=== PATIENT | male | born 1970 | race Caucasian/White ===

== ENCOUNTER 2024-07-17 16:58 | Inpatient (IN) ==
[2024-07-17 17:38] LABS: iSTAT Creatinine 1.1 mg/dl (0.6-1.3); iSTAT Hemoglobin 13.6 g/dl (14.0-18.0); iSTAT Ionized Calcium 1.18 mmol/l (1.12-1.32); iSTAT Potassium 3.6 mmol/L (3.3-5.0)
[2024-07-17 17:41] LABS: Basophils # (auto) 0.03 K/uL (0.00-0.20); Basophils % (auto) 0.4 %; Eosinophils % (auto) 5.7 %; Hematocrit (blood only) 38.4 % (42.0-52.0); Immature Granulocytes # (auto) 0.03 K/uL (0.01-0.20); Immature Granulocytes % (auto) 0.4 %; Lymphocytes # (auto) 1.37 K/uL (1.20-3.40); Lymphocytes % (auto) 19.7 %; Mean Corpuscular Hemoglobin 28.6 pg (25.0-34.0); Mean Corpuscular Hgb Conc 33.9 g/dL (32.0-36.0); Mean Corpuscular Volume 84.4 fL (80.0-100.0); Mean Platelet Volume 9.9 fL (9.4-12.4); Monocytes # (auto) 0.35 K/uL (0.11-0.59); Neutrophils # (auto) 4.78 K/uL (1.40-6.50); Neutrophils % (auto) 68.8 %; Platelet Count 189 K/uL (130-400); RDW Coefficient of Variation 12.7 % (11.5-14.5); RDW Standard Deviation 38.4 fL (36.4-46.3); Red Blood Count 4.55 M/uL (4.70-6.10); White Blood Count 6.96 K/ul (4.8-10.8)
[2024-07-17 17:57] LABS: BUN Creatinine Ratio 13.8 (10-20); Creatinine Clr Calc Pharmacy 85.7 ml/min; Potassium 3.6 mmol/L (3.5-5.1)
[2024-07-17 18:03] LABS: Troponin I High Sensitivity 10.7 pg/ml (0-20)
[2024-07-17 18:11] LABS: Partial Thromboplastin Ratio 0.9; Partial Thromboplastin Time 23 Seconds (21-31); Prothrombin Time 10.8 Seconds (9.0-12.0)
[2024-07-17] MEDS: OPTIRAY 320 125ml IV ONE (19:00)
--- NOTE | 2024-07-17 19:58 | CT Scan Report ---
Exam(s): CTA CHEST IV Amt: 117 ml optiray 320 EXAM: CT Angiography Chest With Intravenous Contrast CLINICAL HISTORY: Reason for exam: Chest Pain, eval for PE. TECHNIQUE: Axial computed tomographic angiography images of the chest with intravenous contrast. CTDI is 26 mGy and DLP is 864 mGy-cm. Automated exposure control was utilized for the study. A dose lowering technique was utilized adhering to the principles of ALARA. MIP reconstructed images were created and reviewed. COMPARISON: No relevant prior studies available. FINDINGS: Pulmonary arteries: Adequate pulmonary artery opacification. Enlarged main pulmonary may represent pulmonary arterial hypertension. Acute lobar, segmental, and subsegmental pulmonary emboli involving all lung lobes bilaterally. Aorta: No acute findings. No aortic aneurysm or dissection. Lungs: Focal regions of subpleural opacity posterior left upper lobe and at the basilar left lower lobe, potentially pulmonary infarcts. Bibasilar subsegmental atelectasis. No visible mass. Pleural space: Unremarkable. No significant effusion. No pneumothorax. Heart: Elevated RV/LV ratio measuring 1.4 suggesting RV strain. Mild cardiomegaly. Coronary artery atherosclerosis. Trace pericardial effusion. Bones/joints: No acute fracture. No dislocation. Soft tissues: Unremarkable. Lymph nodes: Mildly enlarged left infrahilar lymph nodes. IMPRESSION: 1. Acute lobar, segmental, and subsegmental pulmonary emboli involving all lung lobes bilaterally. 2. Elevated RV/LV ratio measuring 1.4 suggesting RV strain. 3. Focal regions of subpleural opacity posterior left upper lobe and at the basilar left lower lobe, potentially pulmonary infarcts. Communications: Call Doctor Pulmonary Embolism Electronically signed by: Delgado Flores M.D. 07/17/24 19:57 PM
[2024-07-17] MEDS ORDERED: Heparin IV Adult Wt-Based Standard w/ INITIAL Bolus Protocol IV STA (20:03)
[2024-07-17] MEDS ORDERED: HEPARIN SOD (PORCINE) 1000 UNIT/ML IV ONE (20:18)
[2024-07-17] MEDS: HEPARIN SODIUM/DEXTROSE 25,000 UNITS/500 ML BAG IV SCH (20:52)
[2024-07-17] MEDS: HEPARIN SOD (PORCINE) 1000 UNIT/ML IV ONE (20:53)
--- NOTE | 2024-07-17 21:23 | Emergency Department Note ---
History of Present Illness General Chief Complaint: Abnormal Labs/Diagnostic Testing Stated Complaint: ABN TEST RESULTS Time Seen by Provider: 07/17/24 17:18 History of Present Illness Provider Complaint: + abnormal lab Returns today for: + called because of abnormal lab/test Description of abnormal result: Ultrasound showing DVT Associated symptoms: + shortness of breath; no fever, no chills, no chest pain, no rash, no nausea or no abdominal pain Home Medications Medication Instructions Recorded Confirmed Type No Known Home Medications 07/17/24 07/17/24 History Allergies Allergy/AdvReac Type Severity Reaction Status Date / Time No Known Allergies Allergy Unverified 07/17/24 20:14 Past Med/Surg History Problem List (Updated 07/17/24 @ 21:25 by Dakota Mullins MD) DVT (deep venous thrombosis) (Acute) Pulmonary emboli (Acute) Right leg swelling Social History Smoking Status: Never smoker Feels Safe at Home: Yes Physical Exam 2 Vital Signs: Vital Signs - 24 hr 07/17/24 17:07 07/17/24 17:46 07/17/24 17:46 Temperature 36.8 C Temperature Source Temporal Artery Sc an Pulse Rate 108 H 87 Pulse Rate [Apical ] 90 Pulse Rhythm Regular Respiratory Rate 22 20 20 Respiratory Effort / Characteristics Non-Labored Sponta neous Non-Labored Sponta neous Respiratory Depth Normal Normal Respiratory Patter n Blood Pressure 124/81 Blood Pressure [Ri ght Arm] 147/87 H Blood Pressure Zuleyma n 95 Blood Pressure Zuleyma n [Right Arm] 107 Pulse Oximetry 97 96 95 Oxygen Delivery Me thod Room Air Room Air Room Air Sepsis Recent Feve r Within 48 Hours No Sepsis New/Unexpla ined Change in Men memo Status No Sepsis Action Take n by Nursing No Action Required 07/17/24 18:01 07/17/24 20:31 Temperature Temperature Source Pulse Rate 89 Pulse Rate [Apical ] 88 Pulse Rhythm Respiratory Rate 18 Respiratory Effort / Characteristics Non-Labored Respiratory Depth Normal Respiratory Patter n Regular Blood Pressure Blood Pressure [Ri ght Arm] 157/92 H Blood Pressure Zuleyma n Blood Pressure Zuleyma n [Right Arm] 113 Pulse Oximetry 95 Oxygen Delivery Me thod Room Air Sepsis Recent Feve r Within 48 Hours Sepsis New/Unexpla ined Change in Men memo Status Sepsis Action Take n by Nursing Physical Exam: Physical Exam GENERAL: oriented to person, place, and time. appears well-developed and well- nourished. HENT: Exam performed. - Head: Normocephalic and atraumatic. EYES: Conjunctivae and EOM are normal. Right eye exhibits no discharge. Left eye exhibits no discharge. No scleral icterus. NECK: Normal range of motion. Neck supple. No JVD present. CV: Normal rate, regular rhythm, normal heart sounds and intact distal pulses. Palpable radial pulses bue. PULM/CHEST: Effort normal and breath sounds normal. No respiratory distress. No stridor. no wheezes. no rales. ABD: The abdomen is soft. There is no tenderness. NEURO: Motor and sensation grossly intact. SKIN: Skin is warm and dry. He is not diaphoretic. PSYCH: normal mood and affect. Behavior is normal. Judgment and thought content normal. Course Course 1717: The patient was evaluated in room A12. A complete history and physical exam was performed Administered Medications Heparin Sodium/Dextrose (Heparin Sodium/Dextrose) 25,000 units in 500 mls @ 29 mls/hr IV .[id number] PENDING SALE TO [facility]; Protocol Stop: 08/16/24 20:29 Last Admin: 07/17/24 20:52 Dose: 1,450 units/hr, 29 mls/hr Documented By: SAHARA Co-signed By: ALEE Discontinued Medications Heparin Sodium (Porcine) (Heparin Sod (Porcine) 1000 Unit/Ml) 6,000 units IV NOW ONE Stop: 07/17/24 20:46 Last Admin: 07/17/24 20:53 Dose: 6,000 units Documented By: SAHARA Co-signed By: ALEE Ioversol (Optiray 320 125ml) 117 ml IV ONCE ONE Stop: 07/17/24 19:01 Last Admin: 07/17/24 19:00 Dose: 117 ml Documented By: CORY Medical Decision Making Medical Records Attestation: I reviewed the patient's medical records. External medical records reviewed. Patient had an extensive DVT in the right lower extremity from the right popliteal gastrocnemius posterior tibial anterior tibial and peroneal veins also on the right femoral vein. This ultrasound was done outpatient today. Laboratory Data Attestation: I reviewed the patient's lab results. 07/17/24 17:19 07/17/24 17:19 Lab Results 07/17/24 07/17/24 Range/Units 17:19 17:26 WBC 6.96 (4.8-10.8) K/ul RBC 4.55 L (4.70-6.10) M/uL Hgb 13.0 L (14.0-18.0) g/dl POC Hgb 13.6 L (14.0-18.0) g/dl Hct 38.4 L (42.0-52.0) % POC Hct 40 L (42-52) % MCV 84.4 (80.0-100.0) fL MCH 28.6 (25.0-34.0) pg MCHC 33.9 (32.0-36.0) g/dL RDW Std Deviation 38.4 (36.4-46.3) fL RDW Coeff of Kamaljit 12.7 (11.5-14.5) % Plt Count 189 (130-400) K/uL MPV 9.9 (9.4-12.4) fL Immature Gran % (Auto) 0.4 % Neut % (Auto) 68.8 % Lymph % (Auto) 19.7 % [place] % (Auto) 5.0 % Eos % (Auto) 5.7 % Baso % (Auto) 0.4 % Neut # (Auto) 4.78 (1.40-6.50) K/uL Lymph # (Auto) 1.37 (1.20-3.40) K/uL [place] # (Auto) 0.35 (0.11-0.59) K/uL Eos # (Auto) 0.40 (0.00-0.50) K/uL Baso # (Auto) 0.03 (0.00-0.20) K/uL Immature Gran # (Auto) 0.03 (0.01-0.20) K/uL PT 10.8 (9.0-12.0) Seconds INR 1.0 (0.9-1.1) APTT 23 (21-31) Seconds PTT Ratio 0.9 POC Sodium 143 (135-144) mmol/L Sodium 141 (136-145) mmol/L POC Potassium 3.6 (3.3-5.0) mmol/L Potassium 3.6 (3.5-5.1) mmol/L POC Chloride 107 (101-112) mmol/L Chloride 107 (98-107) mmol/L Carbon Dioxide 25 (21-32) mmol/L POC Total CO2 24 (24-31) mmol/L Anion Gap 9 (3-11) POC Anion Gap 15.0 L (16-25) mmol/L POC BUN 17 (7-18) mg/dl BUN 15 (6-23) mg/dl Creatinine 1.09 (0.6-1.4) mg/dl POC Creatinine 1.1 (0.6-1.3) mg/dl Est Cr Clr Drug Dosing 85.7 ml/min eGFR 79.65 BUN/Creatinine Ratio 13.8 (10-20) Glucose 98 (70-99(Fasting)) mg/dl POC Glucose (other) 98 (70-99) mg/dl Calcium 9.0 (8.6-10.3) mg/dl POC Ioniz Calcium Nathan 1.18 (1.12-1.32) mmol/l Troponin I High Sens 10.7 (0-20) pg/ml Lipase 12 (11-82) U/L Imaging Data Attestation: I personally reviewed and interpreted this imaging study as follows: Radiologist's Impression: Chest CTA 07/17/24 17:19 CR Exam(s): CTA CHEST IV Amt: 117 ml optiray 320 EXAM: CT Angiography Chest With Intravenous Contrast CLINICAL HISTORY: Reason for exam: Chest Pain, eval for PE. TECHNIQUE: Axial computed tomographic angiography images of the chest with intravenous contrast. CTDI is 26 mGy and DLP is 864 mGy-cm. Automated exposure control was utilized for the study. A dose lowering technique was utilized adhering to the principles of ALARA. MIP reconstructed images were created and reviewed. COMPARISON: No relevant prior studies available. FINDINGS: Pulmonary arteries: Adequate pulmonary artery opacification. Enlarged main pulmonary may represent pulmonary arterial hypertension. Acute lobar, segmental, and subsegmental pulmonary emboli involving all lung lobes bilaterally. Aorta: No acute findings. No aortic aneurysm or dissection. Lungs: Focal regions of subpleural opacity posterior left upper lobe and at the basilar left lower lobe, potentially pulmonary infarcts. Bibasilar subsegmental atelectasis. No visible mass. Pleural space: Unremarkable. No significant effusion. No pneumothorax. Heart: Elevated RV/LV ratio measuring 1.4 suggesting RV strain. Mild cardiomegaly. Coronary artery atherosclerosis. Trace pericardial effusion. Bones/joints: No acute fracture. No dislocation. Soft tissues: Unremarkable. Lymph nodes: Mildly enlarged left infrahilar lymph nodes. IMPRESSION: 1. Acute lobar, segmental, and subsegmental pulmonary emboli involving all lung lobes bilaterally. 2. Elevated RV/LV ratio measuring 1.4 suggesting RV strain. 3. Focal regions of subpleural opacity posterior left upper lobe and at the basilar left lower lobe, potentially pulmonary infarcts. Communications: Call Doctor Pulmonary Embolism Electronically signed by: Delgado Flores M.D. 07/17/24 19:57 PM ECG Data Attestation: I personally reviewed and interpreted this ECG as follows: Rate (beats per minute): 91 Rhythm: normal sinus Findings: no ST depression, no ST elevation or no prolonged QT MDM Narrative Cardiac monitoring: An order was placed for continuous cardiac monitoring. The monitor shows a rate of 90 with sinus rhythm interpreted by me Vital signs stable. Labs are unremarkable. Imaging shows diffuse pulmonary emboli with right ventricular strain. Discussed case with ICU team Isiah PADILLA both he and I feel that the patient does not need ICU level care or thrombolytics at this time given blood pressure, and oxygen saturation, and troponin are all within normal limits. Patient not reporting any chest pain. Discussed case with [facility] hospitalist Dr. Barrios who will evaluate the patient for admission. Heparin bolus and drip started for the patient. Impression & Plan Pulmonary emboli, DVT (deep venous thrombosis) Critical Care Time Critical Care Time: Yes Total Critical Care Time: 65 I have personally spent greater than 65 minutes of critical care time in the direct management of this patient. This includes bedside care, interpretation of diagnostic studies, and testing, discussion with consultants, patient, and family members, and other required patient management activities. This 65 minutes is in excess of all separately billable procedures. Discharge Plan Visit Data Chief Complaint: Abnormal Labs/Diagnostic Testing Stated Complaint: ABN TEST RESULTS ED Provider: Dakota Mullins Discharge Problem: Pulmonary emboli, DVT (deep venous thrombosis) Patient Disposition: Admitted As Inpatient Forms Stand Alone Forms: My [facility] [email or web address] Prescriptions Prescriptions: No Action No Known Home Medications Referrals Referrals: PCP,NO [Primary Care Provider] - Discharge Problem: Pulmonary emboli Qualifiers: Pulmonary embolism type: unspecified Chronicity: acute Acute cor pulmonale presence: with acute cor pulmonale Qualified Code(s): I26.09 - Other pulmonary embolism with acute cor pulmonale DVT (deep venous thrombosis) Qualifiers: DVT location: lower extremity Affected thrombotic vein of extremity: u nspecified vein of extremity Chronicity: acute Laterality: unspecified laterality Qualified Code(s): I82.409 - Acute embolism and thrombosis of unspecified deep veins of unspecified lower extremity
[2024-07-17] MEDS ORDERED: oxyCODONE HCL IR 5 MG TAB (IMMEDIATE RELEASE) PO PRN (21:49)
[2024-07-17] MEDS ORDERED: POLYETHYLENE (MIRALAX) 17 GM PACK PO PRN (21:49)
[2024-07-17] MEDS ORDERED: ACETAMINOPHEN 325 MG TAB PO PRN (21:49)
[2024-07-17] MEDS ORDERED: NITROGLYCERIN SL 0.4 MG/TAB TAB SL PRN (21:49)
[2024-07-17] MEDS: SODIUM CHLORIDE 0.9% 1,000 ML IV SCH (22:14)
[2024-07-18] MEDS: QUEtiapine FUMARATE 25 MG TABLET PO STA ×2 (02:07→04:03)
--- NOTE | 2024-07-18 03:37 | History & Physical Report ---
Date of Service July 17, 2024 Assessment & Plan (1) Pulmonary emboli: Plan: 54-year-old male with no significant past medical history comes because of swelling and pain in the right lower extremity and shortness of breath and found to have right lower extremity DVT and extensive PE. Patient states last couple of weeks he is having pain in the right lower extremity and swelling. Pain was on and off. In last 2 to 3 weeks patient is also getting short of breath on exertion and having cough and bringing up sputum sometimes. A week ago he went to urgent care and thought he might have a Valdovinos's cyst and also because of his sleeping difficulty was prescribed Seroquel. As symptoms not getting better he came to ER today. Ultrasound showed right lower extremity DVT and CT scan showed extensive bilateral PEs. Currently resting comfortably and hemodyna mically stable. Denies any chest pains. No headache. No dizziness. No runny nose or sore throat or cough. No fevers. No nausea. No abdominal pain. Normal bowel and bladder movements. Denies any blood in the stools. Right lower extremity swelling and pain Shortness of breath Right lower extremity DVT Acute pulmonary embolism involving all lobes bilaterally. Suggestive of RV strain Hemodynamically stable Troponin unremarkable Started IV heparin Will follow repeat troponin and echo Because of clot burden and possibility of RV strain will consult cardiology and pulmonary in a.m. Close monitoring telemetry DVT prophylaxis IV heparin Disposition Telemetry Full code History of Present Illness Chief Complaint: DVT and PE Primary Care Provider: NO PCP 54-year-old male with no significant past medical history comes because of swelling and pain in the right lower extremity and shortness of breath and found to have right lower extremity DVT and extensive PE. Patient states last couple of weeks he is having pain in the right lower extremity and swelling. Pain was on and off. In last 2 to 3 weeks patient is also getting short of breath on exertion and having cough and bringing up sputum sometimes. A week ago he went to urgent care and thought he might have a Valdovinos's cyst and also because of his sleeping difficulty was prescribed Seroquel. As symptoms not getting better he came to ER today. Ultrasound showed right lower extremity DVT and CT scan showed extensive bilateral PEs. Currently resting comfortably and hemodynamically stable. Denies any chest pains. No headache. No dizziness. No runny nose or sore throat or cough. No fevers. No nausea. No abdominal pain. Normal bowel and bladder movements. Denies any blood in the stools. Past med history. None Past surgical history. Appendectomy Social history. No smoking. No alcohol use. No drug use. Family history. Significant for blood clots. Allergies Allergy/AdvReac Type Severity Reaction Status Date / Time No Known Allergies Allergy Unverified 07/17/24 20:14 Home Medications Medication Instructions Recorded Confirmed Type No Known Home Medications 07/17/24 07/17/24 History Past Med/Surg History Problem List (Updated 07/17/24 @ 21:25 by Dakota Mullins MD) DVT (deep venous thrombosis) (Acute) Pulmonary emboli (Acute) Right leg swelling Social History Smoking Status: Never smoker Hx Alcohol Use: No Hx Substance Use: No Preferred Language: Urdu Horticulture Instructor Required: No Beliefs That Will Affect Care: None Current Living Situation: Spouse Feels Safe at Home: Yes Safety Concerns: Feels Safe At This Time Assistive Devices: Glasses Review of Systems Review of Systems: All systems reviewed & are unremarkable except as noted in HPI & below Physical Exam Physical Exam: General- Not in distress Head- atraumatic Eyes- PERRL. ENT- oropharynx clear Neck- supple, no JVD. Lungs- clear to auscultation no wheezing or crackles Heart- regular rhythm; no murmur, no gallop. Abdomen- normal bowel sounds, soft, nontender, no distension Extremities- Right lower extremity swollen, warm to palpation Neuro- alert, oriented PERRL, no facial palsy; no dysarthria; moves extremities Results & Data Results & Data Vital Signs (Past 12 Hours) Vital Signs Temp Pulse Pulse Resp BP BP Pulse Ox 07/17/24 20:31 88 18 157/92 H 95 07/17/24 18:01 89 07/17/24 17:46 87 20 95 07/17/24 17:46 90 20 147/87 H 96 07/17/24 17:07 36.8 C 108 H 22 124/81 97 O2 Del Method 07/17/24 20:31 Room Air 07/17/24 18:01 07/17/24 17:46 Room Air 07/17/24 17:46 Room Air 07/17/24 17:07 Room Air Diagnostic Findings Laboratory Results WBC 6.96 K/ul (4.8-10.8) 07/17/24 17:19 RBC 4.55 M/uL (4.70-6.10) L 07/17/24 17:19 Hgb 13.0 g/dl (14.0-18.0) L 07/17/24 17:19 POC Hgb 13.6 g/dl (14.0-18.0) L 07/17/24 17:26 Hct 38.4 % (42.0-52.0) L 07/17/24 17:19 POC Hct 40 % (42-52) L 07/17/24 17:26 MCV 84.4 fL (80.0-100.0) 07/17/24 17:19 MCH 28.6 pg (25.0-34.0) 07/17/24 17:19 MCHC 33.9 g/dL (32.0-36.0) 07/17/24 17:19 RDW Std Deviation 38.4 fL (36.4-46.3) 07/17/24 17:19 RDW Coeff of Kamaljit 12.7 % (11.5-14.5) 07/17/24 17:19 Plt Count 189 K/uL (130-400) 07/17/24 17:19 MPV 9.9 fL (9.4-12.4) 07/17/24 17:19 Immature Gran % (Auto) 0.4 % 07/17/24 17:19 Neut % (Auto) 68.8 % 07/17/24 17:19 Lymph % (Auto) 19.7 % 07/17/24 17:19 [place] % (Auto) 5.0 % 07/17/24 17:19 Eos % (Auto) 5.7 % 07/17/24 17:19 Baso % (Auto) 0.4 % 07/17/24 17:19 Neut # (Auto) 4.78 K/uL (1.40-6.50) 07/17/24 17:19 Lymph # (Auto) 1.37 K/uL (1.20-3.40) 07/17/24 17:19 [place] # (Auto) 0.35 K/uL (0.11-0.59) 07/17/24 17:19 Eos # (Auto) 0.40 K/uL (0.00-0.50) 07/17/24 17:19 Baso # (Auto) 0.03 K/uL (0.00-0.20) 07/17/24 17:19 Immature Gran # (Auto) 0.03 K/uL (0.01-0.20) 07/17/24 17:19 PT 10.8 Seconds (9.0-12.0) 07/17/24 17:19 INR 1.0 (0.9-1.1) 07/17/24 17:19 APTT 23 Seconds (21-31) 07/17/24 17:19 PTT Ratio 0.9 07/17/24 17:19 POC Sodium 143 mmol/L (135-144) 07/17/24 17:26 Sodium 141 mmol/L (136-145) 07/17/24 17:19 POC Potassium 3.6 mmol/L (3.3-5.0) 07/17/24 17:26 Potassium 3.6 mmol/L (3.5-5.1) 07/17/24 17:19 POC Chloride 107 mmol/L (101-112) 07/17/24 17:26 Chloride 107 mmol/L (98-107) 07/17/24 17:19 Carbon Dioxide 25 mmol/L (21-32) 07/17/24 17:19 POC Total CO2 24 mmol/L (24-31) 07/17/24 17:26 Anion Gap 9 (3-11) 07/17/24 17:19 POC Anion Gap 15.0 mmol/L (16-25) L 07/17/24 17:26 POC BUN 17 mg/dl (7-18) 07/17/24 17:26 BUN 15 mg/dl (6-23) 07/17/24 17:19 Creatinine 1.09 mg/dl (0.6-1.4) 07/17/24 17:19 POC Creatinine 1.1 mg/dl (0.6-1.3) 07/17/24 17:26 Est Cr Clr Drug Dosing 85.7 ml/min 07/17/24 17:19 eGFR 79.65 07/17/24 17:19 BUN/Creatinine Ratio 13.8 (10-20) 07/17/24 17:19 Glucose 98 mg/dl (70-99(Fasting)) 07/17/24 17:19 POC Glucose (other) 98 mg/dl (70-99) 07/17/24 17:26 Calcium 9.0 mg/dl (8.6-10.3) 07/17/24 17:19 POC Ioniz Calcium Nathan 1.18 mmol/l (1.12-1.32) 07/17/24 17:26 Troponin I High Sens 10.7 pg/ml (0-20) 07/17/24 17:19 Lipase 12 U/L (11-82) 07/17/24 17:19 Impressions Chest CTA 07/17/24 17:19 CR Exam(s): CTA CHEST IV Amt: 117 ml optiray 320 EXAM: CT Angiography Chest With Intravenous Contrast CLINICAL HISTORY: Reason for exam: Chest Pain, eval for PE. TECHNIQUE: Axial computed tomographic angiography images of the chest with intravenous contrast. CTDI is 26 mGy and DLP is 864 mGy-cm. Automated exposure control was utilized for the study. A dose lowering technique was utilized adhering to the principles of ALARA. MIP reconstructed images were created and reviewed. COMPARISON: No relevant prior studies available. FINDINGS: Pulmonary arteries: Adequate pulmonary artery opacification. Enlarged main pulmonary may represent pulmonary arterial hypertension. Acute lobar, segmental, and subsegmental pulmonary emboli involving all lung lobes bilaterally. Aorta: No acute findings. No aortic aneurysm or dissection. Lungs: Focal regions of subpleural opacity posterior left upper lobe and at the basilar left lower lobe, potentially pulmonary infarcts. Bibasilar subsegmental atelectasis. No visible mass. Pleural space: Unremarkable. No significant effusion. No pneumothorax. Heart: Elevated RV/LV ratio measuring 1.4 suggesting RV strain. Mild cardiomegaly. Coronary artery atherosclerosis. Trace pericardial effusion. Bones/joints: No acute fracture. No dislocation. Soft tissues: Unremarkable. Lymph nodes: Mildly enlarged left infrahilar lymph nodes. IMPRESSION: 1. Acute lobar, segmental, and subsegmental pulmonary emboli involving all lung lobes bilaterally. 2. Elevated RV/LV ratio measuring 1.4 suggesting RV strain. 3. Focal regions of subpleural opacity posterior left upper lobe and at the basilar left lower lobe, potentially pulmonary infarcts. Communications: Call Doctor Pulmonary Embolism Electronically signed by: Delgado Flores M.D. 07/17/24 19:57 PM ECG Additional Comments: ECG. Normal sinus rhythm rate of 91. Left axis deviation. QTc 477. Code Status & VTE Plan VTE Prophylaxis Plan VTE Prophylaxis will be ordered: Yes (1) Pulmonary emboli Acute cor pulmonale presence: with acute cor pulmonale Chronicity: acute Pulmonary embolism type: unspecified Qualified Code(s): I26.09 - Other pulmonary embolism with acute cor pulmonale
[2024-07-18 04:15] LABS: Basophils # (auto) 0.03 K/uL (0.00-0.20); Basophils % (auto) 0.4 %; Eosinophils # (auto) 0.38 K/uL (0.00-0.50); Eosinophils % (auto) 5.1 %; Hematocrit (blood only) 31.3 % (42.0-52.0); Hemoglobin 10.8 g/dl (14.0-18.0); Immature Granulocytes # (auto) 0.02 K/uL (0.01-0.20); Immature Granulocytes % (auto) 0.3 %; Lymphocytes # (auto) 1.58 K/uL (1.20-3.40); Lymphocytes % (auto) 21.2 %; Mean Corpuscular Hemoglobin 28.2 pg (25.0-34.0); Mean Corpuscular Hgb Conc 34.5 g/dL (32.0-36.0); Mean Corpuscular Volume 81.7 fL (80.0-100.0); Mean Platelet Volume 9.9 fL (9.4-12.4); Monocytes # (auto) 0.39 K/uL (0.11-0.59); Monocytes % (auto) 5.2 %; Neutrophils # (auto) 5.04 K/uL (1.40-6.50); Neutrophils % (auto) 67.8 %; Platelet Count 198 K/uL (130-400); RDW Coefficient of Variation 12.6 % (11.5-14.5); RDW Standard Deviation 37.8 fL (36.4-46.3); Red Blood Count 3.83 M/uL (4.70-6.10); White Blood Count 7.44 K/ul (4.8-10.8)
[2024-07-18 04:26] LABS: Albumin Level 3.2 gm/dl (3.4-5.0); Bilirubin Direct 0.1 mg/dl (0-0.2); Bilirubin,Total 0.4 mg/dl (0.2-1.0); Calcium 8.1 mg/dl (8.6-10.3); Creatinine Clr Calc Pharmacy 86.2 ml/min; Total Protein 6.1 gm/dl (6.0-8.3)
[2024-07-18 04:31] LABS: Troponin I High Sensitivity 8.8 pg/ml (0-20)
[2024-07-18] MEDS ORDERED: ENOXAPARIN 1 MG/KG SC SCH (08:15)
--- NOTE | 2024-07-18 08:17 | Cardiology Progress Note ---
Date of Service July 18, 2024 Assessment & Plan Admission and Anticipated Discharge Date Admission Date: July 17, 2024 Subjective Events Overnight: Subjective: Review of Systems Review of Systems: All systems reviewed & are unremarkable except as noted in HPI & below Results & Data Vital Signs (Past 12 Hours) Vital Signs Temp Pulse Pulse Resp BP Pulse Ox O2 Del Method 07/18/24 07:30 36.7 C 82 19 123/74 92 Room Air 07/18/24 02:04 37.2 C 91 H 18 129/84 91 Room Air 07/17/24 22:00 Room Air 07/17/24 21:54 96 H 07/17/24 21:50 37.1 C 97 H 20 123/72 92 Room Air 07/17/24 20:31 88 18 157/92 H 95 Room Air Laboratory Results Cardiac Enzymes 07/17/24 07/18/24 Range/Units 17:19 03:25 AST 12 L (13-39) U/L Troponin I High Sens 10.7 8.8 (0-20) pg/ml Coagulation 07/17/24 Range/Units 17:19 PT 10.8 (9.0-12.0) Seconds APTT 23 (21-31) Seconds CBC 07/17/24 07/18/24 Range/Units 17:19 03:25 WBC 6.96 7.44 (4.8-10.8) K/ul RBC 4.55 L 3.83 L (4.70-6.10) M/uL Hgb 13.0 L 10.8 L (14.0-18.0) g/dl Hct 38.4 L 31.3 L (42.0-52.0) % Plt Count 189 198 (130-400) K/uL Neut # (Auto) 4.78 5.04 (1.40-6.50) K/uL Lymph # (Auto) 1.37 1.58 (1.20-3.40) K/uL [place] # (Auto) 0.35 0.39 (0.11-0.59) K/uL Eos # (Auto) 0.40 0.38 (0.00-0.50) K/uL Baso # (Auto) 0.03 0.03 (0.00-0.20) K/uL Comprehensive Metabolic Panel 10/14/24 10/15/24 Range/Units 17:19 03:25 Sodium 141 140 (136-145) mmol/L Potassium 3.6 4.0 (3.5-5.1) mmol/L Chloride 107 109 H (98-107) mmol/L Carbon Dioxide 25 24 (21-32) mmol/L BUN 15 15 (6-23) mg/dl Creatinine 1.09 1.07 (0.6-1.4) mg/dl Glucose 98 101 H (70-99(Fasting)) mg/dl Calcium 9.0 8.1 L (8.6-10.3) mg/dl Direct Bilirubin 0.1 (0-0.2) mg/dl AST 12 L (13-39) U/L ALT 30 (7-52) U/L Alkaline Phosphatase 43 (34-104) U/L Total Protein 6.1 (6.0-8.3) gm/dl Albumin 3.2 L (3.4-5.0) gm/dl Intake and Output 07/17/24 07/18/24 07/18/24 22:59 06:59 14:59 Intake Total 26.583 / 225.233 198.65 / 225.233 74.433 / 74.433 Output Total 250 / 250 Balance 26.583 / -24.767 -51.35 / -24.767 74.433 / 74.433 Intake: IV 26.583 / 225.233 198.65 / 225.233 74.433 / 74.433 Heparin Sodium/Dextrose 25,000 26.583 / 225.233 198.65 / 225.233 74.433 / 74.433 units In 500 ml @ 1,450 UNITS/ HR 29 mls/hr IV .[id number] [facility] Rx #:[id number] Oral 0 / 0 Output: Urine 250 / 250 Other: Weight 91.7 kg 91.8 kg Weight Measurement Method Built in Bedscale Built in Bedscale Medications Administered Current Inpatient Medications Acetaminophen (Acetaminophen 325 Mg Tab) 650 mg PO Q4H PRN PRN Reason: Pain or Fever Stop: 08/16/24 21:48 Enoxaparin Sodium (Enoxaparin 100 Mg/1ml Syr) 90 mg SQ BID [facility] Stop: 08/17/24 08:59 Sodium Chloride (Nss) 1,000 mls @ 75 mls/hr IV .[id number] [facility] Stop: 07/18/24 11:08 Last Admin: 07/17/24 22:14 Dose: 75 mls/hr Nitroglycerin (Nitroglycerin Sl 0.4 Mg/Tab Tab) 0.4 mg SL Q5M PRN PRN Reason: Chest Pain Stop: 08/16/24 21:48 Oxycodone HCl (Oxycodone Hcl Ir 5 Mg Tab (Immediate Release)) 5 mg PO Q6H PRN PRN Reason: Severe Pain (Scale 7, 8, 9,10) Stop: 07/31/24 21:48 Polyethylene Glycol (Polyethylene (Miralax) 17 Gm Pack) 17 gm PO DAILY PRN PRN Reason: Constipation Stop: 08/16/24 21:48 Quetiapine Fumarate (Quetiapine Fumarate 25 Mg Tablet) 50 mg PO [facility] Stop: 08/17/24 20:59
[2024-07-18] MEDS: ENOXAPARIN 100 MG/1ML SYR SQ SCH (08:54)
--- NOTE | 2024-07-18 08:55 | Pulmonary Consultation ---
Date of Consultation July 18, 2024 Assessment & Plan (1) Pulmonary emboli: Acute cor pulmonale presence: with acute cor pulmonale Chronicity: acute Pulmonary embolism type: unspecified Qualified Code(s): I26.09 - Other pulmonary embolism with acute cor pulmonale (2) DVT (deep venous thrombosis): Affected thrombotic vein of extremity: unspecified vein of extremity Chronicity: acute DVT location: lower extremity Laterality: unspecified laterality Qualified Code(s): I82.409 - Acute embolism and thrombosis of unspecified deep veins of unspecified lower extremity Plan Impression: 54-year-old male with likely thrombophilia given family history and DVT and PE after extensive car ride. He is hemodynamically stable and has negative troponin. Echocardiogram is pending. He is hemodynamically stable without evidence of tachycardia, hypotension, or hypoxemia but did have increased RV to LV ratio on CT. Echo pending. Recommendations: 1. Extensive DVT and PE: Would continue anticoagulation. Heparin would be appropriate and IV heparin or low molecular weight heparin would be an option. Patient does not meet criteria for consideration of thrombolysis at this point in time given his normal hemodynamics. Would recommend at least 6 months of anticoagulation although given his family history, could make a case for indefinite anticoagulation. At a minimum, if anticoagulation is to be stopped, would recommend the patient have hematology consultation performed for testing for thrombophilia at the 6-month timeframe. If DOACs are to be initiated, he would not require an overlap. If he elects to pursue Coumadin, would need 5 days of heparin with 24 hours overlap with an INR greater than or equal to 2. 2. Probable pulmonary infarcts: Supportive care at this point time. Avoid ibuprofen. Pain control with Tylenol as needed. 3. No indication for the patient to be n.p.o. and will start his diet. In addition, no indication for bedrest and the patient can be ambulatory as tolerated. 4. Keep right lower extremity elevated is much as possible to avoid postphlebitic syndrome. May consider compression stockings in the outpatient setting after 2 to 3 weeks of systemic anticoagulation 5. Recommend age-appropriate cancer screening in the outpatient setting. Given his anemia, consideration for assessment of iron stores would be appropriate. If iron deficiency anemia is identified, patient should have outpatient colonoscopy and endoscopy performed. The above recommendations and plan were extensively discussed with the patient and his at bedside. Questions were answered to the best my ability. Feel free to contact us with questions or concerns History of Present Illness Attending Physician: Pj Levine MD History of Present Illness Asked by hospitalist to evaluate this patient admitted with a DVT and PE. History is obtained from discussion with the patient and his at bedside as well as review electronic medical record. The patient is a 54-year-old [facility] male who took a car trip to [place] about 3 to 4 weeks ago. This was about a 6 to 7-hour drive and he and his got out once or twice on the trip. After returning home he noted swelling in his right lower extremity. He was seen at an outside facility and referred for ultrasound which confirmed extensive DVT. He was sent to the emergency room after the ultrasound showed extensive DVT. CT angiogram was performed which also revealed segmental filling defects. The patient was initiated on heparin. He had reported some shortness of breath going on for the last several days. No cough or hemoptysis. He denies chest pain or palpitations. No significant syncope or presyncope that he is noted. He is a non-smoker. The patient does report a family history of clotting disorders. 2 of his brothers, one of his sisters, and his mother all apparently had DVTs and/or PEs. He is unclear if hypercoagulable workup was performed. He has not had colonoscopy that he is aware of but denies any blood in his stools. Allergies Allergy/AdvReac Type Severity Reaction Status Date / Time No Known Allergies Allergy Unverified 07/17/24 20:14 Home Medications Medication Instructions Recorded Confirmed Type No Known Home Medications 07/17/24 07/17/24 History Patient History Social History Smoking Status: Never smoker Hx Alcohol Use: No Hx Substance Use: No Preferred Language: Burkinan Oxygraph Operator Required: No Beliefs That Will Affect Care: None Current Living Situation: Spouse Feels Safe at Home: Yes Safety Concerns: Feels Safe At This Time Assistive Devices: Glasses Review of Systems Review of Systems: Please refer to admission H&P. No additions or deletions Physical Exam Constitutional: WD/WN, vitals as above Neck: trachea midline, no thyromegaly Respiratory: normal respiratory effort, lungs clear to auscultation Cardiovascular: RRR, no murmur, no edema Gastrointestinal (Abdomen): normal bowel sounds, soft, nontender, no hepatosplenomegaly Musculoskeletal: Right lower extremity swollen and tender to palpation with palpable cord in the popliteal fossa. Skin: no rashes, warm and dry Neurologic: Nonfocal exam Lymphatic: no cervical lymphadenopathy Results & Data Results & Data Vital Signs (Past 12 Hours) Vital Signs Temp Pulse Pulse Resp BP Pulse Ox O2 Del Method 07/18/24 07:30 36.7 C 82 19 123/74 92 Room Air 07/18/24 02:04 37.2 C 91 H 18 129/84 91 Room Air 07/17/24 22:00 Room Air 07/17/24 21:54 96 H 07/17/24 21:50 37.1 C 97 H 20 123/72 92 Room Air Critical Care Results & Data Vital Signs (Past 12 Hours) Vital Signs Temp Pulse Pulse Resp BP Pulse Ox O2 Del Method 07/18/24 07:30 36.7 C 82 19 123/74 92 Room Air 07/18/24 02:04 37.2 C 91 H 18 129/84 91 Room Air 07/17/24 22:00 Room Air 07/17/24 21:54 96 H 07/17/24 21:50 37.1 C 97 H 20 123/72 92 Room Air Lab & Micro Results (Past 24 Hours) RBC 3.83 M/uL (4.70-6.10) L 07/18/24 WBC 7.44 K/ul (4.8-10.8) 07/18/24 Hgb 10.8 g/dl (14.0-18.0) L 07/18/24 Hct 31.3 % (42.0-52.0) L 07/18/24 MCV 81.7 fL (80.0-100.0) 07/18/24 MCH 28.2 pg (25.0-34.0) 07/18/24 MCHC 34.5 g/dL (32.0-36.0) 07/18/24 RDW Standard Deviation 37.8 fL (36.4-46.3) 07/18/24 RDW Coefficient of Variation 12.6 % (11.5-14.5) 07/18/24 Plt Count 198 K/uL (130-400) 07/18/24 MPV 9.9 fL (9.4-12.4) 07/18/24 Neutrophils (%) (Auto) 67.8 % 07/18/24 Lymphocytes (%) (Auto) 21.2 % 07/18/24 Monocytes # (Auto) 0.39 K/uL (0.11-0.59) 07/18/24 Eosinophils # (Auto) 0.38 K/uL (0.00-0.50) 07/18/24 Immature Granulocyte % (Auto) 0.3 % 07/18/24 Neutrophils # (Auto) 5.04 K/uL (1.40-6.50) 07/18/24 Lymphocytes # (Auto) 1.58 K/uL (1.20-3.40) 07/18/24 Monocytes # (Auto) 0.39 K/uL (0.11-0.59) 07/18/24 Eosinophils # (Auto) 0.38 K/uL (0.00-0.50) 07/18/24 Basophils # (Auto) 0.03 K/uL (0.00-0.20) 07/18/24 Immature Granulocyte # (Auto) 0.02 K/uL (0.01-0.20) 4 Na 140 mmol/L (136-145) 07/18/24 K 4.0 mmol/L (3.5-5.1) 07/18/24 Cl 109 mmol/L (98-107) H 07/18/24 CO2 24 mmol/L (21-32) 07/18/24 Anion Gap 7 (3-11) 07/18/24 BUN 15 mg/dl (6-23) 07/18/24 Creatinine 1.07 mg/dl (0.6-1.4) 07/18/24 BUN/Creatinine Ratio 14.0 (10-20) 07/18/24 Glu 101 mg/dl (70-99(Fasting)) H 07/18/24 Ca 8.1 mg/dl (8.6-10.3) L 07/18/24 Total Bilirubin 0.4 mg/dl (0.2-1.0) 07/18/24 Direct Bilirubin 0.1 mg/dl (0-0.2) 07/18/24 AST 12 U/L (13-39) L 07/18/24 ALT 30 U/L (7-52) 07/18/24 Alkaline Phosphatase 43 U/L (34-104) 07/18/24 TP 6.1 gm/dl (6.0-8.3) 07/18/24 Albumin 3.2 gm/dl (3.4-5.0) L 07/18/24 Mg 2.0 mg/dl (1.7-2.4) 07/18/24 03:25 Calcium Level 8.1 mg/dl (8.6-10.3) L 07/18/24 03:25 Prothromb Time International Ratio 1.0 (0.9-1.1) 07/17/24 17:1 9 Diagnostic Findings (Past 24 Hours) Chest CTA 07/17/24 17:19 CR Exam(s): CTA CHEST IV Amt: 117 ml optiray 320 EXAM: CT Angiography Chest With Intravenous Contrast CLINICAL HISTORY: Reason for exam: Chest Pain, eval for PE. TECHNIQUE: Axial computed tomographic angiography images of the chest with intravenous contrast. CTDI is 26 mGy and DLP is 864 mGy-cm. Automated exposure control was utilized for the study. A dose lowering technique was utilized adhering to the principles of ALARA. MIP reconstructed images were created and reviewed. COMPARISON: No relevant prior studies available. FINDINGS: Pulmonary arteries: Adequate pulmonary artery opacification. Enlarged main pulmonary may represent pulmonary arterial hypertension. Acute lobar, segmental, and subsegmental pulmonary emboli involving all lung lobes bilaterally. Aorta: No acute findings. No aortic aneurysm or dissection. Lungs: Focal regions of subpleural opacity posterior left upper lobe and at the basilar left lower lobe, potentially pulmonary infarcts. Bibasilar subsegmental atelectasis. No visible mass. Pleural space: Unremarkable. No significant effusion. No pneumothorax. Heart: Elevated RV/LV ratio measuring 1.4 suggesting RV strain. Mild cardiomegaly. Coronary artery atherosclerosis. Trace pericardial effusion. Bones/joints: No acute fracture. No dislocation. Soft tissues: Unremarkable. Lymph nodes: Mildly enlarged left infrahilar lymph nodes. IMPRESSION: 1. Acute lobar, segmental, and subsegmental pulmonary emboli involving all lung lobes bilaterally. 2. Elevated RV/LV ratio measuring 1.4 suggesting RV strain. 3. Focal regions of subpleural opacity posterior left upper lobe and at the basilar left lower lobe, potentially pulmonary infarcts. Communications: Call Doctor Pulmonary Embolism Electronically signed by: Delgado Flores M.D. 07/17/24 19:57 PM I & O Totals 24 Hours 07/17/24 07/18/24 07/19/24 06:59 06:59 06:59 Intake Total 225.233 / 225.233 274.767 / 274.767 Output Total 250 / 250 Balance -24.767 / -24.767 274.767 / 274.767 Cumulative 07/17/24 16:58 thru 07/18/24 08:39 Intake Total 500.000 Output Total 250 Balance 250.000 RT Ventilator Mngmt (Last Documented) Ventilator Ordered Settings Respiratory Rate 19 07/18/24 07:30 Ventilator - PT Measurements Respiratory Rate 19 PG Care Time/CCT Total # of Minutes Spent Total Time Spent with Patient: Total time spent is greater than 50% in coordination of care (as documented) at patient's floor/unit and/or counseling patient: Coding Level of Care Code 07883 IN/OBS CONSULT LVL 4,60M Diagnoses Pulmonary emboli I26.09 Acute cor pulmonale presence: with acute cor pulmonale Chronicity: acute Pulmonary embolism type: unspecified DVT (deep venous thrombosis) I82.409 Affected thrombotic vein of extremity: unspecified vein of extremity Chronicity: acute DVT location: lower extremity Laterality: unspecified laterality
--- NOTE | 2024-07-18 09:01 | Electrocardiogram Report ---
Test Reason : Blood Pressure : */* mmHG Vent. 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
--- NOTE | 2024-07-18 10:23 | Cardiology Consultation ---
Date of Consultation July 18, 2024 Assessment & Plan (1) Pulmonary emboli: (2) DVT (deep venous thrombosis): Plan See attending Cardiologists's documentation for recommendations and plan of care. Supervising Physician Co-Signing Physician Notes Attending Staff: * Pt seen and evaluated with [facility] Staff * Concur with observations and plans 54 yo man presenting with right leg swelling and pain Dx: Multiple bilateral PEs * DVT/PE * Rx with Heparin * CT - possible right heart strain * Recent drive to [place] (Back and forth) * Noted to have RLE discomfort on return * No known Malignancy * No known Hypercoaguable State * No known Trauma * Troponin is WNL x 2 * EKG - old anterior/inferior VA * No known hx of VA * ECHO is completed and pending * Maintaining SBP (123mmHg); No Tachycardia * No end-organ malfunction * No evidence of right heart failure on examination Plans: * Plans to transition to DOAC * Consider Hypercoaguability evaluation * ECHO - RV dilated - normal function; Normal LVEF 55-60% * Pulmonary evaluation - no thrombolytics * Follow up in Cardiology Clinic * Repeat Imaging as an outpt * Please call with additional questions Boris Loera History of Present Illness Reason for Consultation: PE; Evaluate for right heart strain Requesting Physician: Robbie Woodson Attending Physician: Dr Boris Loera History of Present Illness Patient is a 54 year old male who presented to [facility] with complaints of right leg swelling/pain and shortness of breath. Diagnosed with acute right LE DVT and b/l pulmonary emboli. Started on heparin Cardiology consulted due to possible right heart strain. Echocardiogram pending No known history of medical problems. He takes no medications on a regular basis. He reports family history of blood clots in his mother and siblings. Recent drive to [place] for a family wedding. Right leg became painful and swollen after trip. No chest pain. worsening SOB noted over the last week. Allergies Allergy/AdvReac Type Severity Reaction Status Date / Time No Known Allergies Allergy Unverified 07/17/24 20:14 Home Medications Medication Instructions Recorded Confirmed Type No Known Home Medications 07/17/24 07/17/24 History Patient History Social History Smoking Status: Never smoker Hx Alcohol Use: No Hx Substance Use: No Preferred Language: Marshallese Nutrition Counselor Required: No Beliefs That Will Affect Care: None Current Living Situation: Spouse Feels Safe at Home: Yes Safety Concerns: Feels Safe At This Time Assistive Devices: Glasses Review of Systems Review of Systems: All systems reviewed & are unremarkable except as noted in HPI & below Physical Exam Physical Exam: Overweight No elevation in JVP S1S2 CTA B Right LE - +1 edema Warm and perfusing Constitutional: WD/WN, vitals as above well developed and + obese; no acute distress Neck: trachea midline, no thyromegaly Respiratory: normal respiratory effort, lungs clear to auscultation Cardiovascular: RRR, no murmur, no edema Gastrointestinal (Abdomen): normal bowel sounds, soft, nontender, no hepatosplenomegaly Skin: no rashes, warm and dry Neurologic: PERRL, EOMI, accommodation nl, no face palsy, no dysarthria Psychiatric: A+Ox3, euthymic affect Results & Data Vital Signs (Past 12 Hours) Vital Signs Temp Pulse Pulse Resp BP Pulse Ox O2 Del Method 07/18/24 09:31 83 07/18/24 07:30 36.7 C 82 19 123/74 92 Room Air 07/18/24 02:04 37.2 C 91 H 18 129/84 91 Room Air Laboratory Results Cardiac Enzymes 07/17/24 07/18/24 Range/Units 17:19 03:25 AST 12 L (13-39) U/L Troponin I High Sens 10.7 8.8 (0-20) pg/ml Coagulation 07/17/24 Range/Units 17:19 PT 10.8 (9.0-12.0) Seconds APTT 23 (21-31) Seconds CBC 07/17/24 07/18/24 Range/Units 17:19 03:25 WBC 6.96 7.44 (4.8-10.8) K/ul RBC 4.55 L 3.83 L (4.70-6.10) M/uL Hgb 13.0 L 10.8 L (14.0-18.0) g/dl Hct 38.4 L 31.3 L (42.0-52.0) % Plt Count 189 198 (130-400) K/uL Neut # (Auto) 4.78 5.04 (1.40-6.50) K/uL Lymph # (Auto) 1.37 1.58 (1.20-3.40) K/uL [place] # (Auto) 0.35 0.39 (0.11-0.59) K/uL Eos # (Auto) 0.40 0.38 (0.00-0.50) K/uL Baso # (Auto) 0.03 0.03 (0.00-0.20) K/uL Comprehensive Metabolic Panel 07/17/24 07/18/24 Range/Units 17:19 03:25 Sodium 141 140 (136-145) mmol/L Potassium 3.6 4.0 (3.5-5.1) mmol/L Chloride 107 109 H (98-107) mmol/L Carbon Dioxide 25 24 (21-32) mmol/L BUN 15 15 (6-23) mg/dl Creatinine 1.09 1.07 (0.6-1.4) mg/dl Glucose 98 101 H (70-99(Fasting)) mg/dl Calcium 9.0 8.1 L (8.6-10.3) mg/dl Direct Bilirubin 0.1 (0-0.2) mg/dl AST 12 L (13-39) U/L ALT 30 (7-52) U/L Alkaline Phosphatase 43 (34-104) U/L Total Protein 6.1 (6.0-8.3) gm/dl Albumin 3.2 L (3.4-5.0) gm/dl Intake and Output 07/17/24 07/18/24 07/18/24 22:59 06:59 14:59 Intake Total 26.583 / 225.233 198.65 / 145.659 7591.017 / 1131.017 Output Total 250 / 250 Balance 26.583 / -24.767 -51.35 / -24.767 1131.017 / 1131.017 Intake: IV 26.583 / 225.233 198.65 / 246.901 7732.017 / 1131.017 Heparin Sodium/Dextrose 25,000 26.583 / 225.233 198.65 / 225.233 274.767 / 274.767 units In 500 ml @ 1,450 UNITS/ HR 29 mls/hr IV .[id number] [facility] Rx #:[id number] Sodium Chloride 0.9% 1,000 ml @ 856.25 / 856.25 75 mls/hr IV .[id number] [facility] Rx#: [id number] Oral 0 / 0 Output: Urine 250 / 250 Other: Weight 91.7 kg 91.8 kg Weight Measurement Method Built in [facility] Built in [facility] Diagnostic Findings Telemetry reviewed: NSR, no arrhythmias EKG reviewed dated 07/17/24: NSR at 91 bmp LAD Old inferior infarct Old anteroseptal infarct No prior EKG's for comparison Echo pending Chest CTA 07/17/24 17:19 CR Exam(s): CTA CHEST IV Amt: 117 ml optiray 320 EXAM: CT Angiography Chest With Intravenous Contrast CLINICAL HISTORY: Reason for exam: Chest Pain, eval for PE. TECHNIQUE: Axial computed tomographic angiography images of the chest with intravenous contrast. CTDI is 26 mGy and DLP is 864 mGy-cm. Automated exposure control was utilized for the study. A dose lowering technique was utilized adhering to the principles of ALARA. MIP reconstructed images were created and reviewed. COMPARISON: No relevant prior studies available. FINDINGS: Pulmonary arteries: Adequate pulmonary artery opacification. Enlarged main pulmonary may represent pulmonary arterial hypertension. Acute lobar, segmental, and subsegmental pulmonary emboli involving all lung lobes bilaterally. Aorta: No acute findings. No aortic aneurysm or dissection. Lungs: Focal regions of subpleural opacity posterior left upper lobe and at the basilar left lower lobe, potentially pulmonary infarcts. Bibasilar subsegmental atelectasis. No visible mass. Pleural space: Unremarkable. No significant effusion. No pneumothorax. Heart: Elevated RV/LV ratio measuring 1.4 suggesting RV strain. Mild cardiomegaly. Coronary artery atherosclerosis. Trace pericardial effusion. Bones/joints: No acute fracture. No dislocation. Soft tissues: Unremarkable. Lymph nodes: Mildly enlarged left infrahilar lymph nodes. IMPRESSION: 1. Acute lobar, segmental, and subsegmental pulmonary emboli involving all lung lobes bilaterally. 2. Elevated RV/LV ratio measuring 1.4 suggesting RV strain. 3. Focal regions of subpleural opacity posterior left upper lobe and at the basilar left lower lobe, potentially pulmonary infarcts. Communications: Call Doctor Pulmonary Embolism Electronically signed by: Delgado Flores M.D. 07/17/24 19:57 PM ECHOcardiogram: 07-18-2024 RV severely dilated with preserved function No IVC dilation LV function - 55-60% Interventricular septum is flattened Medications Administered Current Inpatient Medications Acetaminophen (Acetaminophen 325 Mg Tab) 650 mg PO Q4H PRN PRN Reason: Pain or Fever Stop: 08/16/24 21:48 Enoxaparin Sodium (Enoxaparin 100 Mg/1ml Syr) 90 mg SQ BID [facility] Stop: 08/17/24 08:59 Last Admin: 07/18/24 08:54 Dose: 90 mg Oxycodone HCl (Oxycodone Hcl Ir 5 Mg Tab (Immediate Release)) 5 mg PO Q6H PRN PRN Reason: Severe Pain (Scale 7, 8, 9,10) Stop: 07/31/24 21:48 Polyethylene Glycol (Polyethylene (Miralax) 17 Gm Pack) 17 gm PO DAILY PRN PRN Reason: Constipation Stop: 08/16/24 21:48 Quetiapine Fumarate (Quetiapine Fumarate 25 Mg Tablet) 50 mg PO HS [facility] Stop: 08/17/24 20:59 (1) Pulmonary emboli Acute cor pulmonale presence: with acute cor pulmonale Chronicity: acute Pulmonary embolism type: unspecified Qualified Code(s): I26.09 - Other pulmonary embolism with acute cor pulmonale (2) DVT (deep venous thrombosis) Affected thrombotic vein of extremity: unspecified vein of extremity Chronicity: acute DVT location: lower extremity Laterality: unspecified laterality Qualified Code(s): I82.409 - Acute embolism and thrombosis of unspecified deep veins of unspecified lower extremity
--- NOTE | 2024-07-18 13:52 | Hospitalist Progress Note ---
Date of Service July 18, 2024 Assessment & Plan (1) Pulmonary emboli: Plan: 54-year-old male with no significant past medical history comes because of swelling and pain in the right lower extremity and shortness of breath and found to have right lower extremity DVT and extensive PE. Acute right femoral deep vein thrombosis Acute bilateral PE Right ventricular strain Pulmonary infarct Acute cor pulmonale Patient presented with pain in right lower extremity and shortness of breath on exertion Multiple first-degree relatives with history of DVT/PE including patient's brother, sister and mom. Bilateral venous duplex shows acute DVT on right femoral vein CTA chest shows acute lobar, segmental and subsegmental PE involving all lung lobes bilaterally. Echocardiogram shows EF of 55 to 60% with severely dilated right ventricle and flattened septum. Currently on Lovenox. Discussion done with patient regarding long-term anticoagulation. Given patient's family history; he will likely need to be on anticoagulation lifelong. Discussed regarding Coumadin and DOAC's. Due to cost, patient leaning towards Coumadin. He will need bridging of at least 5 days of Lovenox/Coumadin; discussed with him to learn Lovenox injection with RN. Case management to assist to see if patient can get Eliquis at a lower cost which would be preferred. Patient and Case management to get back to provider regarding choice of anticoagulation. Monitor on telemetry. Supplemental oxygen if SpO2 is less than 90%. He will need hypercoagulable workup as outpatient along with age appropriate cancer screening. Full code DVT prophylaxis Lovenox Time spent evaluating patient, direct bedside care, chart review, placing orders, interpretation of diagnostic studies, discussion with consultants, patient, and family members, as well as other required patient management activities is 50 minutes Please note the above document was generated using voice recognition software. It may contain grammatical, syntax or spelling errors. Any formal questions or concerns about the content, text or information contained within the body of this dictation should be directly addressed to the provider for clarification Admission and Anticipated Discharge Date Admission Date: July 17, 2024 Subjective Patient seen and examined at bedside. He is lying on the bed comfortably; not in distress He denies shortness of breath at rest Reports that he is short of breath on exertion No significant events overnight Review of Systems Review of Systems: All systems reviewed & are unremarkable except as noted in Subjective Physical Exam Physical Exam: General- Not in distress Lungs- clear to auscultation no wheezing or crackles Heart- regular rhythm; no murmur, no gallop. Abdomen- normal bowel sounds, soft, nontender, no distension Extremities-Right lower extremity swollen greater than left Neuro- alert, oriented PERRL, no facial palsy; no dysarthria; moves extremities Results & Data Results & Data Vital Signs (Past 12 Hours) Vital Signs Temp Pulse Pulse Resp BP Pulse Ox O2 Del Method 07/18/24 13:22 Room Air 07/18/24 11:50 36.8 C 90 19 129/82 92 Room Air 07/18/24 09:31 83 07/18/24 07:30 36.7 C 82 19 123/74 92 Room Air 07/18/24 02:04 37.2 C 91 H 18 129/84 91 Room Air (1) Pulmonary emboli Acute cor pulmonale presence: with acute cor pulmonale Chronicity: acute Pulmonary embolism type: unspecified Qualified Code(s): I26.09 - Other pulmonary embolism with acute cor pulmonale
[2024-07-18] MEDS: QUEtiapine FUMARATE 25 MG TABLET PO SCH (20:56)
[2024-07-18] MEDS ORDERED: QUEtiapine FUMARATE 25 MG TABLET PO SCH (21:00)
[2024-07-19 06:44] LABS: Basophils # (auto) 0.02 K/uL (0.00-0.20); Basophils % (auto) 0.3 %; Eosinophils # (auto) 0.32 K/uL (0.00-0.50); Eosinophils % (auto) 5.5 %; Hemoglobin 11.2 g/dl (14.0-18.0); Immature Granulocytes # (auto) 0.02 K/uL (0.01-0.20); Immature Granulocytes % (auto) 0.3 %; Lymphocytes # (auto) 1.54 K/uL (1.20-3.40); Lymphocytes % (auto) 26.4 %; Mean Corpuscular Hemoglobin 28.2 pg (25.0-34.0); Mean Corpuscular Hgb Conc 33.9 g/dL (32.0-36.0); Mean Corpuscular Volume 83.1 fL (80.0-100.0); Mean Platelet Volume 9.8 fL (9.4-12.4); Monocytes # (auto) 0.35 K/uL (0.11-0.59); Neutrophils # (auto) 3.59 K/uL (1.40-6.50); Neutrophils % (auto) 61.5 %; Platelet Count 189 K/uL (130-400); RDW Coefficient of Variation 12.6 % (11.5-14.5); RDW Standard Deviation 38.4 fL (36.4-46.3); Red Blood Count 3.97 M/uL (4.70-6.10); White Blood Count 5.84 K/ul (4.8-10.8)
[2024-07-19 07:02] LABS: Calcium 8.2 mg/dl (8.6-10.3); Creatinine Clr Calc Pharmacy 99.3 ml/min
[2024-07-19] MEDS ORDERED: APIXABAN 5 MG TABLET PO SCH (09:00)
[2024-07-19] MEDS: APIXABAN 5 MG TABLET PO SCH (09:43)
[2024-07-19 10:55] VITALS: BP 146/75; PULSE 81; RESP 17; TEMP 98.1; O2SAT 93
--- NOTE | 2024-07-19 10:57 | Pulmonology Progress Note ---
Date of Service July 19, 2024 Assessment & Plan (1) Pulmonary emboli: Acute cor pulmonale presence: with acute cor pulmonale C hronicity: acute Pulmonary embolism type: unspecified Qualified Code(s): I 26.09 - Other pulmonary embolism with acute cor pulmonale (2) DVT (deep venous thrombosis): Affected thrombotic vein of extremity: unspecified vein of extremity Chronicity: acute DVT location: lower extremity Laterality: u nspecified laterality Qualified Code(s): I82.409 - Acute embolism and thrombosis of unspecified deep veins of unspecified lower extremity Plan Impression: 54-year-old male with likely thrombophilia given family history and DVT and PE after extensive car ride. He is hemodynamically stable and has negative troponin. Echocardiogram does show some RV strain and associated pulmonary hypertension. He is hemodynamically stable without evidence of tachycardia, hypotension, or hypoxemia but did have increased RV to LV ratio on CT. Echo pending. Recommendations: 1. Extensive DVT and PE: Okay to transition to DOAC. His PES I score is quite low indicating low probability of complication. Would have case management work with the patient regarding cost affordable alternatives. Again would recommend anticoagulation for at least 6 months although given his family history could make a case for lifelong anticoagulation. If anticoagulation is to be discontinued, would recommend that he meet with hematology to have hypercoagulability workup conducted 2. Probable pulmonary infarcts: Supportive care at this point time. Avoid ibuprofen. Pain control with Tylenol as needed. 3. Keep right lower extremity elevated is much as possible to avoid postphlebitic syndrome. May consider compression stockings in the outpatient setting after 2 to 3 weeks of systemic anticoagulation 4. Recommend age-appropriate cancer screening in the outpatient setting. Given his anemia, consideration for assessment of iron stores would be appropriate. If iron deficiency anemia is identified, patient should have outpatient colonoscopy and endoscopy performed. The above recommendations and plan were extensively discussed with the patient and his at bedside. Questions were answered to the best my ability. Pulmonary will sign off at this point time. Feel free to contact us with questions or concerns Admission and Anticipated Discharge Date Admission Date: July 17, 2024 Subjective Patient seen and examined. EMR reviewed. He is feeling better. His leg swelling is improved. He is been ambulatory. No syncope or presyncope. His shortness of breath is also improved. He has not had any bleeding issues associated with the medication. He is anxious to be dismissed from the hospital. Review of Systems 2 Review of Systems: All systems reviewed & are unremarkable except as noted in Subjective Physical Exam 2 Constitutional: WD/WN, vitals as above Neck: trachea midline, no thyromegaly Respiratory: normal respiratory effort, lungs clear to auscultation Cardiovascular: RRR, no murmur, no edema Gastrointestinal (Abdomen): normal bowel sounds, soft, nontender, no hepatosplenomegaly Skin: no rashes, warm and dry Lymphatic: no cervical lymphadenopathy Results & Data Results & Data Vital Signs (Past 12 Hours) Vital Signs Temp Pulse Pulse Pulse Pulse Pulse Resp 07/19/24 10:12 112 H 101 H 96 H 07/19/24 10:02 79 07/19/24 07:39 36.8 C 80 17 07/19/24 04:12 36.8 C 81 18 07/18/24 23:22 36.7 C 84 18 07/18/24 23:00 65 Resp Resp Resp BP Pulse Ox Pulse Ox Pulse Ox 07/19/24 10:12 18 16 16 90 90 07/19/24 10:02 07/19/24 07:39 127/85 93 07/19/24 04:12 127/84 93 07/18/24 23:22 129/80 92 07/18/24 23:00 Pulse Ox O2 Del Method 07/19/24 10:12 94 07/19/24 10:02 07/19/24 07:39 Room Air 07/19/24 04:12 Room Air 07/18/24 23:22 Room Air 07/18/24 23:00 Laboratory Results 07/19/24 05:55 07/19/24 05:55 Diagnostic Findings Echocardiogram from 07/18/2024 showed severe dilatation of the right ventricle with normal right ventricular systolic function and an estimated PA systolic pressure of 45 with a normal IVC size and collapsibility. EF was 55-60. PG Care Time/CCT Total # of Minutes Spent Total Time Spent with Patient: Total time spent is greater than 50% in coordination of care (as documented) at patient's floor/unit and/or counseling patient: Coding Level of Care Code 72923 SUB INP/OBS CARE 2/35MIN Diagnoses Pulmonary emboli I26.09 Acute cor pulmonale presence: with acute cor pulmonale Chronicity: acute Pulmonary embolism type: unspecified DVT (deep venous thrombosis) I82.409 Affected thrombotic vein of extremity: unspecified vein of extremity Chronicity: acute DVT location: lower extremity Laterality: unspecified laterality
== END 2024-07-19 13:30 | disposition home or self-care (01) | DRG 175 ==
LOC: ED 16:58 → SUATTDRO 20:57 → 4W 20:57